=== PATIENT | female | born 1960 | race Caucasian/White ===

== ENCOUNTER 2017-07-23 15:46 | Emergency (ER) | payer SELFPAY ==
[~2017-07-23] VITALS: Ht 157.5 cm; Wt 67.0 kg
[2017-07-23 15:51] VITALS: Ht 157.5 cm; Wt 67.0 kg
== END 2017-07-23 20:00 | disposition left against medical advice (07) ==
LOC: E/R 15:46
DX: Z53.21 Procedure and treatment not carried out due to patient leaving prior to being seen by health care provider (principal)